=== PATIENT | male | born 1935 | race Caucasian/White ===

== ENCOUNTER 2019-11-10 10:15 | Day surgery (SDC) | payer MEDICARE, BC ==
[2019-11-07 16:21] LABS: BASOPHILS 0.3 % (0-2); EOSINOPHILS 0.7 % (0-7); HEMATOCRIT 46.8 % (42.0-54.0); IMMATURE GRANULOCYTES 2.8 % (0-5); LYMPHOCYTES 14.6 % (15-50); MCH 32.7 pg (26.0-34.0); MCHC 34.2 g/dL (31.0-37.0); MCV 95.7 fL (80.0-100.0); MEAN PLATELET VOLUME 11.2 fL (7.4-10.4); MONOCYTES 12.9 % (2-11); NEUTROPHILS 68.7 % (40-80); PLATELET COUNT 178 10x3/uL (130-400); RBC 4.89 10x6/uL (4.20-6.10); RDW 15.2 % (11.5-14.5); WBC 10.7 10x3/uL (4.8-10.8)
[2019-11-07 16:25] LABS: ANION GAP 10.5 mmol/L (8-16); CALCIUM 8.6 mg/dL (8.5-10.1); CARBON DIOXIDE 29.8 mmol/L (21.0-32.0); CREATININE - SERUM 1.8 mg/dL (0.6-1.3); POTASSIUM - SERUM 5.3 mmol/L (3.5-5.1)
[~2019-11-10] VITALS: Ht 403.9 cm; Wt 95.5 kg
--- NOTE | ~2019-11-10 | OP ---
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 POSTOPERATIVE DIAGNOSES: Lumbar spinal stenosis with disc herniation at L3-L4 on the right with right L3 and L4 radiculopathies. PROCEDURES: Lumbar laminotomy, medial facetectomy and foraminotomy with discectomy, L3-L4 right. SURGEON: John Serrano MD SALES REPRESENTATIVE JEWELRY: John Zhang. DESCRIPTION AND TECHNIQUE: After induction of general endotracheal anesthesia, the patient was rolled prone on a Emeterio frame. Lumbar spine was prepped and draped in usual sterile fashion. Fluoroscopic x-ray and spinal needle localized the L3-L4 interspace on the right side. A stab incision was created with #11 blade after infiltration of the skin with 1:100,000 epinephrine and 1% lidocaine. A series of dilators were used to advance a METRx retractor at L3-L4 interspace on the right side that was confirmed with fluoroscopic x-ray. A microscope and Midas Des drill were used to perform laminotomy, medial facetectomy and foraminotomy at L3-L4 on the right. There was a large disc herniation within the axilla of the right L3 nerve root, which was removed in a piecemeal fashion with pituitary rongeurs and curettes as well as a Mcleod elevator. Additional disc material was removed from the posterior one-third of the disc space. Following this, the L3 and L4 nerve roots were decompressed well. Meticulous hemostasis was maintained throughout the wound. Wound was irrigated with copious amounts of Ancef irrigant solution. John Zhang first aid instructor provided hemostasis and irrigation and retraction throughout the procedure. The retractors were removed, the fascia was closed with 2-0 Vicryl suture, the subdermal layer was closed with 3-0 Vicryl sutures. Skin was closed with alfredo. A sterile dressing was applied to the wound. The patient was awakened in good condition, taken to recovery. All counts were reported as correct. Estimated blood loss was minimal. TRANSINT:[id number] Voice Confirmation ID: [id number] DOCUMENT ID: [id number] JOHN SERRANO MD CC: [id number] DICTATION DATE: 11/13/19 0752 SEALING MACHINE OPERATOR: 11/13/19 1729 [facility] 11/11/19 [place] [id number] [place] [id number]
[~2019-11-10 10:15] MED LIST: NOVOLOG100 UNIT/1 SC
[2019-11-10] MEDS ORDERED: LISINOPRIL2.5 MG PO (12:03)
[2019-11-10] MEDS ORDERED: K-DUR20 MEQ PO (12:03)
[2019-11-10] MEDS ORDERED: METOPROLOL TART25 MG PO (12:04)
[2019-11-10] MEDS ORDERED: PACERONE100 MG PO (12:05)
[2019-11-10] MEDS ORDERED: FUROSEMIDE20 MG PO (12:05)
[2019-11-10] MEDS ORDERED: LIPITOR80 MG PO (12:06)
[2019-11-10] MEDS ORDERED: MAGNESIUM OXID250 MG PO (12:06)
[2019-11-10] MEDS ORDERED: OMEPRAZOLE20 M1 PO (12:06)
[2019-11-10] MEDS ORDERED: VITAMIN D1000 UNIT PO (12:07)
[2019-11-10] MEDS ORDERED: STOOL SOFTENER100 M1 PO (12:08)
[2019-11-10] MEDS ORDERED: SUPER B COMPLE1 EAC1 PO (12:08)
[2019-11-10] MEDS ORDERED: FISH OIL 1,0001 CA1 PO (12:08)
[2019-11-10] MEDS ORDERED: BAYER CHEWABLE81 MG PO (12:09)
[2019-11-10] MEDS ORDERED: LANTUS INS100 UNITS/ SC (12:10)
[2019-11-10 12:24] VITALS: BP 143/73
[2019-11-10] MEDS ORDERED: NEURONTIN 300300 MG PO (12:49)
[2019-11-10] MEDS ORDERED: HYDROCODON-ACE1 EA10 PO (15:46)
[2019-11-10] MEDS ORDERED: MEDROL DOSE PACK4 MG PO (15:47)
--- NOTE | 2019-11-10 20:03 | NUR ---
1950 PT UNABLE TO URINATE, BLADDER SCAN 194ML PT TOOK REGULAR SCHEDULED LASIX 20 PO. THRIRD BAG OF FLUID HANGING
--- NOTE | 2019-11-10 20:45 | NUR ---
PT ASSISTED TO BATHROOM TO URINATE. DAUGHTER AT BEDSIDE. PAIN RELIEVED FROM PAIN MED. RECIEVED A BED FROM SPOOLING MACHINE OPERATOR 5257. IF UNble to urinate with transfer
--- NOTE | 2019-11-10 20:53 | NUR ---
report given to barrie on med surg
--- NOTE | 2019-11-10 22:05 | NUR ---
ASSESSED AT THE BEGINNING OF THE SHIFT. PT IS ALERT AND ORIENTED. HIS DAUGHTER IS WITH HIM AND THEY ARE WAITING FOR HIM TO BE ABLE TO VOID BEFORE HE CAN GO HOME. ALL DISCHARGE PAPERWORK WAS ALREADY GIVEN TO HIM WITH AN RX FOR PAIN MEDS.
--- NOTE | 2019-11-10 22:35 | NUR ---
PT HAS BEEN UNABLE TO VOID. IN AND OUT CATHED WITH 400CC'S OF URINE OBTAINED. DRINKING MORE WATER TO SEE IF HE CAN VOID BEFORE TOO LONG.
--- NOTE | 2019-11-10 23:59 | NUR ---
PT STILL UNABLE TO VOID. CALL PLACED TO .
--- NOTE | 2019-11-11 00:41 | NUR ---
BLOOD SUGAR WAS 282 AND 10 UNITS OF HUMALOG WERE GIVEN FROM THE INTERMEDIATE SCALE. NORCO 10 X1 WAS ALSO GIVEN FOR PAIN TO BACK AND LEG
[2019-11-11 01:08] VITALS: BP 135/76; Ht 403.9 cm; Wt 95.5 kg
[2019-11-11 04:00] VITALS: BP 138/74
--- NOTE | 2019-11-11 06:59 | NUR ---
PATIENT REMAINS UNABLE TO VOID AND A DE LEON WAS PLACED THIS MORNING UNTILL MD CAN GIVE ORDERS/ BLOOD SUGAR WAS 262 AND IT WAS TREATED.
--- NOTE | 2019-11-11 08:40 | NUR ---
ASSESSMENT PER FLOW SHEET. PATIENT DENIES PAIN TO BACK. DRESSING IN PLACE WITH NICKEL SIZED AMOUNT OF RED DRAINAGE ON DRESSING. SOME SWELLING TO BUE AND BLE IV SL.DE LEON DC'D WITH CATH TIP INTACT,850CC OF URINE EMPTIED FROM DE LEON BAG.FAMILY AT BEDSIDE
[2019-11-11 09:16] VITALS: BP 107/52
--- NOTE | 2019-11-11 12:00 | NUR ---
PATIENT HAS VOIDED 350CC OF YELLOW URINE IN URINAL
[2019-11-11 13:17] VITALS: BP 108/52
--- NOTE | 2019-11-11 15:38 | NUR ---
DISCHARGE INSTRUCTIONS WITH PATIENT AND FAMILY,STATES UNDERSTANDING.IV DCD WITH CATH TIP INTACT. IN AND OUT CATH TEACHING WITH PATIENT AND FAMILY. SUPPLIES WITH PATIENT.LEFT UNIT VIA WHEELCHAIR FOR TRANSPORT HOME
== END 2019-11-11 15:39 | disposition home or self-care (01) ==
LOC: D.OPS 10:15 → D.MS 10:15 → D.PAN 10:30 → D.OPS 11:30 → D.PAN 11:30 → D.MS 20:55 → D.OPS 11-11 15:39
PROVIDERS: Anesthesiology; ATTEND Neurological Surgery
DX: M48.061 Spinal stenosis, lumbar region without neurogenic claudication (principal); E78.5 Hyperlipidemia, unspecified; E11.40 Type 2 diabetes mellitus with diabetic neuropathy, unspecified; Z79.4 Long term (current) use of insulin; I10 Essential (primary) hypertension